=== PATIENT | female | born 1945 | race Caucasian/White ===

== ENCOUNTER 2018-04-21 09:23 | Outpatient (RCR) | payer MEDICARE, OTHER | END 2018-05-05 | LOC: M OT 09:23 | DX: Z51.89 Encounter for other specified aftercare (principal); M25.641 Stiffness of right hand, not elsewhere classified | CPT/HCPCS: 97110 ==

== ENCOUNTER 2018-05-07 08:45 | Outpatient (RCR) | payer MEDICARE | END 2018-06-05 | LOC: M OT 08:45 | DX: Z51.89 Encounter for other specified aftercare (principal); M25.641 Stiffness of right hand, not elsewhere classified | CPT/HCPCS: 97110 ==

== ENCOUNTER → 2020-06-02 | Outpatient (REF) | payer MEDICARE | LOC: M LAB REF 16:49 | PROVIDERS: ATTEND Family Medicine | DX: M54.5 Low back pain (principal) ==

== ENCOUNTER → 2021-07-09 | Outpatient (REF) | payer MEDICARE | LOC: M LAB REF 11:42 | PROVIDERS: ATTEND Family Medicine | DX: N39.0 Urinary tract infection, site not specified (principal) ==

== ENCOUNTER → 2023-05-19 | Outpatient (REF) | payer MEDICARE ==
[2023-05-19 18:11] LABS: URIC ACID 9.5 MG/DL (3.1-7.8)
[2023-05-19 18:13] LABS: C REACTIVE PROTEIN QUANTITATIV 1.3 MG/DL (<1.0)
== END ==
LOC: M LAB REF 16:12
PROVIDERS: ATTEND Internal Medicine
DX: M10.9 Gout, unspecified (principal)

== ENCOUNTER → 2023-07-15 | Outpatient (REF) | payer MEDICARE | LOC: M LAB REF 11:59 | PROVIDERS: ATTEND Family Medicine | DX: M10.9 Gout, unspecified (principal) ==

== ENCOUNTER → 2024-02-13 | Outpatient (REF) | payer MEDICARE | LOC: M LAB REF 12:22 | PROVIDERS: ATTEND Family Medicine | DX: M10.9 Gout, unspecified (principal) ==

== ENCOUNTER → 2024-07-29 | Outpatient (REF) | payer MEDICARE | LOC: M LAB REF 17:00 | PROVIDERS: ATTEND Family Medicine | DX: M10.9 Gout, unspecified (principal) ==

== ENCOUNTER → 2025-02-08 | Outpatient (REF) | payer MEDICARE | LOC: M LAB REF 13:59 | PROVIDERS: ATTEND Family Medicine | DX: M10.9 Gout, unspecified (principal) ==